=== PATIENT | female | born 1965 | race Caucasian/White ===

== ENCOUNTER 2023-08-17 09:35 | Emergency (ER) | payer OTHER ==
[~2023-08-17] VITALS: Ht 177.8 cm; Wt 77.1 kg
[2023-08-17] MEDS ORDERED: HYDR-3980 PO (12:21)
[2023-08-17] MEDS ORDERED: ONDA4TAB5 PO (12:21)
[2023-08-17 13:22] VITALS: BP 124/90; TEMP 97.5; O2SAT 97
== END 2023-08-17 13:23 | disposition home or self-care (01) ==
LOC: ER 09:35
DX: S16.1XXA Strain of muscle, fascia and tendon at neck level, initial encounter (principal); Z79.899 Other long term (current) drug therapy; V89.0XXA Person injured in unspecified motor-vehicle accident, nontraffic, initial encounter; Y93.89 Activity, other specified; Y92.89 Other specified places as the place of occurrence of the external cause; Y99.8 Other external cause status
CPT/HCPCS: 72125; A4606; A4663